=== PATIENT | female | born 1970 | race Caucasian/White ===

== ENCOUNTER 2020-10-28 19:46 | Emergency (ER) | payer BC ==
[~2020-10-28] VITALS: Ht 170.2 cm; Wt 108.7 kg
[2020-10-28] MEDS ORDERED: RECT5CRE EXT (23:15)
[2020-10-28 23:24] VITALS: BP 167/94
== END 2020-10-28 23:30 | disposition home or self-care (01) ==
LOC: M ED 21:07
DX: K60.2 Anal fissure, unspecified (principal); Z88.6 Allergy status to analgesic agent

== ENCOUNTER → 2021-05-10 | Outpatient (CLI) | payer BC ==
[~2021-05-10] MED LIST: RECT5CRE EXT
== END ==
LOC: M WHC 07:36
PROVIDERS: ATTEND Nurse Practitioner Family
DX: Z12.31 Encounter for screening mammogram for malignant neoplasm of breast (principal); R92.8 Other abnormal and inconclusive findings on diagnostic imaging of breast

== ENCOUNTER → 2021-06-07 | Outpatient (CLI) | payer BC | LOC: M WHC 12:44 | PROVIDERS: ATTEND Nurse Practitioner Family | DX: R92.2 Inconclusive mammogram (principal) | CPT/HCPCS: 77066; G0279 ==

== ENCOUNTER → 2021-08-02 | Outpatient (CLI) | payer BC ==
[2021-08-02 16:19] LABS: BASO % 0.5 % (0.0-1.0); EOS % 0.5 % (0.0-3.0); HEMATOCRIT 42.3 % (36.0-47.0); HEMOGLOBIN 14.7 g/dl (12.0-15.5); LYMPH # 2.1 10^3/uL (1.5-5.0); LYMPH % 27.5 % (24.0-44.0); MEAN CORPUSCULAR HEMOGLOBIN 32.9 pg (27.0-33.0); MEAN CORPUSCULAR HGB CONC 34.8 g/dl (32.0-36.5); MEAN CORPUSCULAR VOLUME 94.6 fl (80.0-96.0); MONO # 0.6 10^3/uL (0.0-0.8); MONO % 7.9 % (2.0-8.0); NEUTROPHILS # 4.7 10^3/uL (1.5-8.5); NEUTROPHILS % 63.1 % (36.0-66.0); PLATELET COUNT, AUTOMATED 261 10^3/uL (150-450); RED BLOOD COUNT 4.47 10^6/uL (4.00-5.40); WHITE BLOOD COUNT 7.5 10^3/uL (4.0-10.0)
[2021-08-02 16:54] LABS: ALBUMIN 3.8 GM/DL (3.2-5.2); ALT/SGPT 24 U/L (12-78); BILIRUBIN,TOTAL 0.5 MG/DL (0.2-1.0); BLOOD UREA NITROGEN 15 MG/DL (7-18); CALCIUM LEVEL 9.4 MG/DL (8.5-10.1); CARBON DIOXIDE LEVEL 30 MEQ/L (21-32); CHLORIDE LEVEL 103 MEQ/L (98-107); CREATININE FOR GFR 0.66 MG/DL (0.55-1.30); FERRITIN 75 NG/ML (8-252); FOLATE > 24.0 NG/ML; FREE T4 0.92 NG/DL (0.76-1.46); GLOMERULAR FILTRATION RATE > 60.0 (>51); GLUCOSE, FASTING 75 MG/DL (70-100); IRON (FE) 124 UG/DL (50-170); PERCENT SATURATION 39.4 % (13.2-45.0); SODIUM LEVEL 138 MEQ/L (136-145); TOTAL 25(OH) VITAMIN D 32.1 NG/ML (30.0-100.0); TOTAL IRON BINDING CAPACITY 315 UG/DL (250-450); TOTAL PROTEIN 7.8 GM/DL (6.4-8.2); VITAMIN B12 LEVEL 860 PG/ML
== END ==
LOC: M WUC 15:01
PROVIDERS: ATTEND Nurse Practitioner Family
DX: R53.83 Other fatigue (principal)